=== PATIENT | female | born 1950 | race Caucasian/White ===

== ENCOUNTER → 2018-02-26 | Outpatient (CLI) | payer MEDICARE, OTHER ==
[~2018-02-26] MED LIST: ARTIFICIAL TEAR15 M7 OP; ASPIRIN E.C. 8181 MG PO; LIPITOR 10MG10 MG PO; LOPRESSOR 225 MG/TAB PO; OMEGA-3 FISH1000 MG PO; PROBIOTICA100 Milli1 PO; SENOKOT S 50 MG1 TAB PO; THE MEDICINE S200 M2 PO; VITAMIN B-1000 MCG/T PO
== END ==
LOC: COL.LAB 13:47
DX: Z00.00 Encounter for general adult medical examination without abnormal findings (principal); Z71.3 Dietary counseling and surveillance; M19.91 Primary osteoarthritis, unspecified site; R53.83 Other fatigue; K58.9 Irritable bowel syndrome, unspecified; E28.2 Polycystic ovarian syndrome

== ENCOUNTER → 2018-07-12 | Outpatient (CLI) | payer MEDICARE, OTHER | LOC: MC.RAD 14:11 | DX: Z12.31 Encounter for screening mammogram for malignant neoplasm of breast (principal) ==

== ENCOUNTER → 2019-08-29 | Outpatient (CLI) | payer MEDICARE, OTHER | LOC: MC.RAD 10:59 | DX: Z12.31 Encounter for screening mammogram for malignant neoplasm of breast (principal) ==